=== PATIENT | male | born 1955 | race Caucasian/White ===

== ENCOUNTER → 2016-08-05 | Outpatient (CLI) | payer OTHER | LOC: YCFC.O 16:26 | PROVIDERS: ATTEND Nurse Practitioner Family | DX: K21.9 Gastro-esophageal reflux disease without esophagitis (principal); E78.5 Hyperlipidemia, unspecified; G25.2 Other specified forms of tremor; D53.1 Other megaloblastic anemias, not elsewhere classified ==

== ENCOUNTER → 2016-08-23 | Outpatient (CLI) | payer OTHER | LOC: YCFC.O 17:50 | DX: B96.81 Helicobacter pylori [H. pylori] as the cause of diseases classified elsewhere (principal) ==

== ENCOUNTER 2016-09-24 20:14 | Emergency (ER) | payer OTHER ==
[2016-09-24 20:40] VITALS: BP 133/77; TEMP 97
[2016-09-24] MEDS ORDERED: KETOROLAC TROMETHAMINE INJ 60 MG/2 ML VIAL IM ONE (21:29)
[2016-09-24] MEDS ORDERED: ORPHENADRINE CITRATE 30 MG/ML AMP IM ONE (21:29)
--- NOTE | 2016-09-24 22:05 | ED.PDOC ---
History of Present Illness - General Chief Complaint: Back Pain or Injury Stated Complaint: R. lower back/flank pain Time Seen by Provider: 09/24/16 21:28 Source: patient, RN notes reviewed, Vital Signs reviewed Exam Limitations: no limitations - History of Present Illness Initial Comments: Patient is a 61 y/o male with chronic back pain who has had increased sciatic pain since this morning. He bent down to put on his shoe and has had pain since. The pain is moderate-severe. It is an achey pain with sharp intermittent pain. He has taken his normal medications, tylenol, neurontin, flexeril and baclofen, with no improvement. Timing/Duration: other - Since this AM Severity: moderate, severe Improving Factors: immobilization Worsening Factors: movement Associated Symptoms: denies symptoms Allergies/Adverse Reactions: Allergies Thioridazine [From Mellaril] Allergy (Verified 02/16/16 02:17) Aspirin Adverse Reaction (Verified 02/16/16 02:17) Home Medications: Ambulatory Orders Cyclobenzaprine HCl [Flexeril] 10 mg PO TID #30 tab 05/26/15 Tramadol HCl [Ultram] 50 mg PO Q6H #30 tab 05/26/15 Albuterol Sulfate [Proair Hfa] 2 puff INH Q6H PRN 02/16/16 Baclofen 10 mg PO 02/16/16 Gabapentin 02/16/16 Pradaxa 02/16/16 Pravastatin Sodium 10 mg PO 02/16/16 Symbicort Inhaler 160/4.5 02/16/16 Valporic Acid 0 mg PO DAILY 02/16/16 diphenhydrAMINE HCL [Benadryl] 25 mg PO 02/16/16 Gabapentin [Neurontin] 300 mg PO BID #10 cap 09/24/16 Tramadol HCl 50 mg PO Q4H PRN #15 tab 09/24/16 Review of Systems - Review of Systems Constitutional: States: no symptoms reported EENTM: States: no symptoms reported Respiratory: States: no symptoms reported Cardiology: States: no symptoms reported Gastrointestinal/Abdominal: States: no symptoms reported Genitourinary: States: no symptoms reported Musculoskeletal: States: back pain, muscle pain, muscle stiffness Skin: States: no symptoms reported Neurological: States: no symptoms reported Endocrine: States: no symptoms reported Hematologic/Lymphatic: States: no symptoms reported All other Systems: Reviewed and Negative Past Medical History (General) - Patient Medical History Hx Seizures: No Hx Stroke: No Hx Dementia: No Hx Asthma: No Hx of COPD: Yes Hx Cardiac Disorders: No Hx Congestive Heart Failure: No Hx Pacemaker: No Hx Hypertension: No Hx Thyroid Disease: No Hx Diabetes: No Hx Gastroesophageal Reflux: No Hx Renal Disease: No Hx Cancer: No Hx of HIV: No Hx Hepatitis C: No Hx MRSA: No - Vaccination History Hx Tetanus, Diphtheria Vaccination: Yes Hx Influenza Vaccination: Yes Hx Pneumococcal Vaccination: Yes Immunizations Up to Date: Yes - Social History Hx Tobacco Use: Yes Hx Alcohol Use: Yes Hx Substance Use: Yes - still uses marijuana, past history of illicit drug use Hx Substance Use Treatment: No Hx Depression: No - Activities of Daily Living Hospice Agency (if applicable):: None - Female History Patient is a Female of Child Bearing Age (10 -59 yrs old): No Patient : No Family Medical History - Family History Father Family History: No Known Living Status: Physical Exam - Physical Exam General Appearance: Alert, No apparent distress, Unkempt Eye Exam: bilateral normal Ears, Nose, Throat: hearing grossly normal, normal ENT inspection Respiratory: lungs clear, normal breath sounds, no respiratory distress, no accessory muscle use Cardiovascular/Chest: normal peripheral pulses, regular rate, rhythm, no edema, no gallop, no murmur Gastrointestinal/Abdominal: normal bowel sounds, non tender, soft Back Exam: normal inspection, no CVA tenderness, no vertebral tenderness, other - Positive straight leg raise. Extremity: normal range of motion, non-tender, normal inspection, no pedal edema , no calf tenderness Neurologic: alert, normal mood/affect, oriented x 3 Skin Exam: normal color, warm/dry Progress - Progress Progress: 09/24/16 22:14 Patient had improvement of symptoms after Toradol and Norflex. Will increase his gabapentin from 200 mg BID to 300 mg BID for 5 days and give him some Toradol for breakthrough pain. He will follow up with his PCP if symptoms persist. - Results/Orders Results/Orders: 09/24/16 20:36 Temperature 97 F L Pulse Rate [ 87 left] Respiratory 20 Rate Blood Pressure 133/77 [left] O2 Sat by Pulse 94 L Oximetry Departure - Departure Clinical Impression: Sciatica of right side Time of Disposition: 22:16 Disposition: Discharge to Home or Self Care Departure Forms: ED Discharge - Pt. Copy, Patient Portal Self Enrollment Instructions: Sciatica, DI for Sciatica Diet: resume usual diet Referrals: Karyna Baker NP [Primary Care Provider] - 1-2 Weeks Prescriptions: Gabapentin [Neurontin] 300 mg PO BID #10 cap Tramadol HCl 50 mg PO Q4H PRN #15 tab PRN Reason: Pain Home Medications: Ambulatory Orders Cyclobenzaprine HCl [Flexeril] 10 mg PO TID #30 tab 05/26/15 Tramadol HCl [Ultram] 50 mg PO Q6H #30 tab 05/26/15 Albuterol Sulfate [Proair Hfa] 2 puff INH Q6H PRN 02/16/16 Baclofen 10 mg PO 02/16/16 Gabapentin 02/16/16 Pradaxa 02/16/16 Pravastatin Sodium 10 mg PO 02/16/16 Symbicort Inhaler 160/4.5 02/16/16 Valporic Acid 0 mg PO DAILY 02/16/16 diphenhydrAMINE HCL [Benadryl] 25 mg PO 02/16/16 Gabapentin [Neurontin] 300 mg PO BID #10 cap 09/24/16 Tramadol HCl 50 mg PO Q4H PRN #15 tab 09/24/16 Additional Instructions: Follow up with PCP if symptoms persist or ED if symptoms worsen.
[2016-09-24] MEDS ORDERED: GABAPENTIN 300 MG CAP PO ONE (22:15)
[2016-09-24 23:03] VITALS: O2SAT 95
== END 2016-09-24 23:04 | disposition home or self-care (01) ==
LOC: ER 20:14
DX: M54.41 Lumbago with sciatica, right side (principal); G89.29 Other chronic pain; J44.9 Chronic obstructive pulmonary disease, unspecified; Z79.899 Other long term (current) drug therapy; F12.10 Cannabis abuse, uncomplicated; Z88.6 Allergy status to analgesic agent; Z88.8 Allergy status to other drugs, medicaments and biological substances; Z87.891 Personal history of nicotine dependence
CPT/HCPCS: J1885; J2360

== ENCOUNTER 2016-11-15 16:33 | Emergency (ER) | payer OTHER ==
[2016-11-15 17:02] VITALS: TEMP 98.6
--- NOTE | 2016-11-15 17:55 | RAD ---
EXAM: Chest,2 Views CLINICAL INDICATION: 61-year-old male with recent pneumonia. TECHNIQUE: Two-view, PA and lateral projections of the chest were obtained. COMPARISON: 09/30/2009. FINDINGS: Stable cardiac and mediastinal silhouette. Heart size is normal. Lungs are clear without focal opacity, pneumothorax or pleural effusions. The visualized bones are within normal limits. IMPRESSION: No acute cardiopulmonary abnormalities. Electronically signed by: Emeli Marie MD 11/15/2016 5:53 PM CDT
--- NOTE | 2016-11-15 18:44 | ED.PDOC ---
History of Present Illness - General Chief Complaint: General Time Seen by Provider: 11/15/16 16:47 Source: patient Exam Limitations: no limitations - History of Present Illness Initial Comments: The patient is a 61-year-old male presenting to the emergency room secondary to vague symptoms for the last 24 hours of generalized fatigue and mild body aches. Very mild nausea but no vomiting. No diarrhea. No constipation. He has not been sleeping at his normal home lately and has missed a few doses of his quinine. No chest pain or shortness of breath. He is concerned for a recurrence of pneumonia which he had a month or 2 ago. He is not coughing. He has not had a fever. No runny nose. Timing/Duration: 24 hours Severity: mild Improving Factors: nothing Worsening Factors: nothing Associated Symptoms: denies symptoms Allergies/Adverse Reactions: Allergies Thioridazine [From Mellaril] Allergy (Verified 11/15/16 16:57) Anaphylaxis Aspirin Adverse Reaction (Verified 11/15/16 16:57) Other Told not to take it with the Valproic acid Home Medications: Ambulatory Orders Cyclobenzaprine HCl [Flexeril] 10 mg PO TID #30 tab 05/26/15 Tramadol HCl [Ultram] 50 mg PO Q6H #30 tab 05/26/15 Albuterol Sulfate [Proair Hfa] 2 puff INH Q6H PRN 02/16/16 Baclofen 10 mg PO 02/16/16 Gabapentin 02/16/16 Pradaxa 02/16/16 Pravastatin Sodium 10 mg PO 02/16/16 Symbicort Inhaler 160/4.5 02/16/16 Valporic Acid 0 mg PO DAILY 02/16/16 diphenhydrAMINE HCL [Benadryl] 25 mg PO 02/16/16 Gabapentin [Neurontin] 300 mg PO BID #10 cap 09/24/16 Tramadol HCl 50 mg PO Q4H PRN #15 tab 09/24/16 Review of Systems - Review of Systems Constitutional: States: malaise EENTM: States: no symptoms reported Respiratory: States: no symptoms reported Cardiology: States: no symptoms reported Gastrointestinal/Abdominal: States: nausea Genitourinary: States: no symptoms reported Musculoskeletal: States: other - generalized body aches Skin: States: no symptoms reported Neurological: States: anxiety Endocrine: States: no symptoms reported All other Systems: No Change from Baseline Past Medical History (General) - Patient Medical History Hx Seizures: No Hx Stroke: No Hx Dementia: No Hx Asthma: No Hx of COPD: Yes Hx Cardiac Disorders: No Hx Congestive Heart Failure: No Hx Pacemaker: No Hx Hypertension: No Hx Thyroid Disease: No Hx Diabetes: No Hx Gastroesophageal Reflux: No Hx Renal Disease: No Hx Cancer: Yes - skin cancer Hx of HIV: No Hx Hepatitis C: No Hx MRSA: No - Vaccination History Hx Tetanus, Diphtheria Vaccination: Yes Hx Influenza Vaccination: Yes - 2015 Hx Pneumococcal Vaccination: Yes - 2009 - Social History Hx Tobacco Use: Yes Hx Alcohol Use: Yes Hx Substance Use: Yes - still uses marijuana, past history of illicit drug use Hx Substance Use Treatment: No Hx Depression: No - Female History Patient : No Family Medical History - Family History Father Family History: No Known Living Status: Physical Exam - Physical Exam General Appearance: Alert, Anxious, No apparent distress Eye Exam: bilateral normal Ears, Nose, Throat: hearing grossly normal, normal ENT inspection, normal pharynx Neck: non-tender, full range of motion, supple Respiratory: chest non-tender, lungs clear, normal breath sounds, no respiratory distress, no accessory muscle use Cardiovascular/Chest: normal peripheral pulses, regular rate, rhythm, no edema Peripheral Pulses: radial,right: 2+, radial,left: 2+, dorsalis pedis,right: 2+, dorsalis pedis,left: 2+, posterior tibialis,right: 2+, posterior tibialis,left: 2+ Gastrointestinal/Abdominal: normal bowel sounds, non tender, soft Rectal Exam: deferred Back Exam: normal inspection, no CVA tenderness, no vertebral tenderness Extremity: normal range of motion, non-tender, normal inspection, no pedal edema , normal capillary refill Neurologic: alert, normal mood/affect, oriented x 3 Skin Exam: normal color Comments: Vital Signs - 24 hr 11/15/16 16:55 Temperature 98.6 F Pulse Rate [ 96 H Right Radial] Respiratory 20 Rate Blood Pressure 126/90 [Right Arm] O2 Sat by Pulse 96 Oximetry Progress - Progress Progress: 11/15/16 18:45 the patient's a 61-year-old male presenting with vague symptoms. He needs to keep himself well hydrated. He needs to be sure that he is taking his medications routinely. I would suggest decreasing his quinine dose if possible. No evidence of pneumonia seen on chest x-ray. EKG is reassuring. Lab work is otherwise reassuring. He should follow-up with his primary care doctor later in the week. ER warnings were given. - Results/Orders Results/Orders: Laboratory Tests 11/15/16 11/15/16 17:47 17:47 WBC 8.3 RBC 4.93 Hgb 15.4 Hct 46.4 MCV 94.1 H MCH 31.3 H MCHC 33.2 RDW 14.1 Plt Count 273 MPV 7.2 L Absolute Neuts (auto) 5.90 Absolute Lymphs (auto) 1.40 Absolute Monos (auto) 0.90 H Absolute Eos (auto) 0.20 Absolute Basos (auto) 0.00 Neutrophils % 70.6 Lymphocytes % 16.8 L Monocytes % 10.4 H Eosinophils % 1.8 Basophils % 0.4 Sodium 142 Potassium 5.2 H Chloride 102 Carbon Dioxide 32 H Anion Gap 13.2 BUN 18 Creatinine 0.78 BUN/Creatinine Ratio 23.1 H Random Glucose 107 H Serum Osmolality 285.5 Calcium 9.9 Magnesium 1.7 L Total Bilirubin 0.4 AST 17 ALT 14 Alkaline Phosphatase 65 Serum Total Protein 7.7 Albumin 4.7 Globulin 3.0 Albumin/Globulin Ratio 1.6 Valproic Acid 10.0 L EKG shows normal sinus rhythm. Normal progression of R waves. No acute ST segment changes concerning for ischemia. Departure - Departure Clinical Impression: Malaise and fatigue Disposition: Discharge to Home or Self Care Condition: Fair Departure Forms: ED Discharge - Pt. Copy, Patient Portal Self Enrollment Diet: regular diet Activity: increase activity as tolerated Referrals: Karyna Baker NP [Primary Care Provider] - 1-2 Weeks Home Medications: Ambulatory Orders Cyclobenzaprine HCl [Flexeril] 10 mg PO TID #30 tab 05/26/15 Tramadol HCl [Ultram] 50 mg PO Q6H #30 tab 05/26/15 Albuterol Sulfate [Proair Hfa] 2 puff INH Q6H PRN 02/16/16 Baclofen 10 mg PO 02/16/16 Gabapentin 02/16/16 Pradaxa 02/16/16 Pravastatin Sodium 10 mg PO 02/16/16 Symbicort Inhaler 160/4.5 02/16/16 Valporic Acid 0 mg PO DAILY 02/16/16 diphenhydrAMINE HCL [Benadryl] 25 mg PO 02/16/16 Gabapentin [Neurontin] 300 mg PO BID #10 cap 09/24/16 Tramadol HCl 50 mg PO Q4H PRN #15 tab 09/24/16 Additional Instructions: the patient's a 61-year-old male presenting with vague symptoms. He needs to keep himself well hydrated. He needs to be sure that he is taking his medications routinely. I would suggest decreasing his quinine dose if possible. No evidence of pneumonia seen on chest x-ray. EKG is reassuring. Lab work is otherwise reassuring. He should follow-up with his primary care doctor later in the week. ER warnings were given. the fatigue that he is feeling concerned may be a side effect of the pain medications muscle relaxers and quinine.
[2016-11-15 19:17] VITALS: BP 142/87; O2SAT 93
== END 2016-11-15 19:00 | disposition home or self-care (01) ==
LOC: ER 16:33
DX: R53.83 Other fatigue (principal); R53.81 Other malaise; F12.90 Cannabis use, unspecified, uncomplicated; Z87.891 Personal history of nicotine dependence; J44.9 Chronic obstructive pulmonary disease, unspecified; Z85.828 Personal history of other malignant neoplasm of skin; Z79.899 Other long term (current) drug therapy; Z79.82 Long term (current) use of aspirin; Z88.8 Allergy status to other drugs, medicaments and biological substances

== ENCOUNTER → 2017-03-04 | Outpatient (CLI) | payer OTHER | END | disposition home or self-care (01) | LOC: YCFC.O 15:15 | DX: I10 Essential (primary) hypertension (principal) ==

== ENCOUNTER → 2017-04-20 | Outpatient (CLI) | payer OTHER ==
--- NOTE | 2017-04-22 11:12 | RAD ---
EXAM DESCRIPTION: Chest,2 Views CLINICAL HISTORY: ABNORMAL SPUTUM COMPARISON: November 15, 2016 TECHNIQUE: PA/lateral FINDINGS: The lungs are well expanded and clear. No infiltrates or effusions or masses are noted. The heart is normal in size and shape with no evidence of vascular congestion. The nicolasa and mediastinum demonstrate normal contours. The bony spine and chest wall is normal for age in appearance. IMPRESSION: Normal chest, two views Electronically signed by: Christiano Elias MD 04/22/2017 11:10 AM CDT
== END | disposition home or self-care (01) ==
LOC: RAD 14:44
DX: R09.3 Abnormal sputum (principal)

== ENCOUNTER 2017-06-11 22:52 | Emergency (ER) | payer OTHER ==
[2017-06-11 23:35] VITALS: TEMP 98.3
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
[2017-06-12] MEDS ORDERED: ORPHENADRINE CITRATE 30 MG/ML AMP IM ONE (00:29)
[2017-06-12] MEDS ORDERED: predniSONE 10 MG TAB PO ONE (00:29)
[2017-06-12] MEDS ORDERED: GABAPENTIN 300 MG CAP PO ONE (00:29)
[2017-06-12] MEDS ORDERED: KETOROLAC TROMETHAMINE INJ 30 MG/ML VIAL IM ONE (00:29)
--- NOTE | 2017-06-12 01:07 | RAD ---
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 FINDINGS: The lumbar vertebral bodies demonstrate normal height and alignment. There is moderate intervertebral disc space height loss at L5-S1 and mild disc space height loss at L4-L5. Mild degenerative endplate spurring and scattered lower lumbar spine facet arthropathy. Aortic atherosclerosis. IMPRESSION: Mild degenerative changes of the lumbar spine. Electronically signed by: Mejia Haynes MD 06/12/2017 12:38 AM MODELING AND SIMULATION ANALYST
[2017-06-12 02:24] VITALS: BP 148/90; O2SAT 95
== END 2017-06-12 01:40 | disposition home or self-care (01) ==
LOC: ER 22:52
DX: M51.36 Other intervertebral disc degeneration, lumbar region (principal); Z87.891 Personal history of nicotine dependence; F31.9 Bipolar disorder, unspecified; Z79.899 Other long term (current) drug therapy; J44.9 Chronic obstructive pulmonary disease, unspecified; K21.9 Gastro-esophageal reflux disease without esophagitis
CPT/HCPCS: 72100; J1885; J2360; J7512

== ENCOUNTER 2017-09-03 15:46 | Emergency (ER) | payer OTHER ==
[2017-09-03] MEDS ORDERED: IPRATROPIUM/ALBUTEROL 3 ML VIAL NEB ONE (17:05)
--- NOTE | 2017-09-03 17:45 | RAD ---
EXAM DESCRIPTION: Chest,2 Views CLINICAL HISTORY: 62 years Male, cough, OSORIO COMPARISON: 20 April 2017 TECHNIQUE: PA/lateral FINDINGS: There is no cardiac or pulmonary abnormality. The lungs are clear. There is no effusion. IMPRESSION: 1. Normal two-view chest. Electronically signed by: Kevin Yao MD 09/03/2017 5:44 PM [facility]
[2017-09-03] MEDS ORDERED: cefTRIAXone SODIUM 1 GM in SODIUM CHL 0.9% 50ML MIN-BAG+ 50 ML IVPB ONE (17:57)
[2017-09-03] MEDS ORDERED: methylPREDNISolone SODIUM SUC 125 MG/2 ML VIAL IM ONE (17:57)
[2017-09-03] MEDS ORDERED: cefTRIAXone SODIUM 1 GM VIAL ONE (18:08)
[2017-09-03] MEDS ORDERED: SODIUM CHL 0.9% 50ML MIN-BAG+ 0 ML IVPB ONE (18:08)
[2017-09-03] MEDS ORDERED: LIDOCAINE 1% 10 ML VIAL INJ ONE (18:10)
[2017-09-03] MEDS ORDERED: cefTRIAXone SODIUM 1 GM VIAL IM ONE (18:16)
--- NOTE | 2017-09-03 18:41 | ED.PDOC ---
History of Present Illness - General Chief Complaint: Respiratory Problem Stated Complaint: cough x7 days Time Seen by Provider: 09/03/17 17:56 Source: patient - History of Present Illness Comments: SOB AND WHEEZING SINCE YESTERDAY. HIS COUGH IS PRODUCTIVE. THE PATIENT HAS COPD AND STILL SMOKES Timing/Duration: yesterday Cough Quality/Degree: productive cough, sputum - SPUTUM SEEMS TO BE YELLOW Possible Cause: occasional episodes Improving Factors: nothing Worsening Factors: nothing Associated Symptoms: cough, shortness of breath Allergies/Adverse Reactions: Allergies Thioridazine [From Mellaril] Allergy (Verified 06/11/17 23:36) Anaphylaxis Home Medications: Ambulatory Orders Cyclobenzaprine HCl [Flexeril] 10 mg PO TID #30 tab 05/26/15 Albuterol Sulfate [Proair Hfa] 2 puff INH BID PRN 02/16/16 Baclofen 10 mg PO DAILY 02/16/16 Budesonide-Formoterol Fumarate [Symbicort] 1 aer INH BID 02/16/16 Pravastatin Sodium 10 mg PO DAILY 02/16/16 Valproic Acid 250 mg PO BID 02/16/16 diphenhydrAMINE HCL [Benadryl] 25 mg PO BID 02/16/16 Diphenoxylate/Atropine [Lomotil Tab] 2.5 mg PO DAILY PRN 11/15/16 Gabapentin 200 mg PO BID 11/15/16 Hyoscyamine Sulfate [Anaspaz] 0.125 mg PO DAILY PRN 11/15/16 Indomethacin 25 mg PO BID 11/15/16 Pantoprazole Tablet [Protonix] 40 mg PO BEDTIME 11/15/16 Quinine Sulfate 324 mg PO BEDTIME 11/15/16 Diclofenac Sodium [Diclofenac Sodium Dr] 75 mg PO BID #30 tab 06/12/17 Methocarbamol [Robaxin] 750 mg PO BID #30 tab 06/12/17 Dextromethorphan-Guaifenesin [Mucinex Dm Maximum Streng 60-1200 mg] 1 tab PO BID #14 tab 09/03/17 Doxycycline (Monohydrate) [Doxycycline Monohydrate] 100 mg PO BID #20 tab predniSONE 20 mg PO DAILY #7 tab 09/03/17 Review of Systems - Review of Systems Constitutional: States: no symptoms reported EENTM: States: no symptoms reported Respiratory: States: cough, short of breath, wheezing Cardiology: States: no symptoms reported Gastrointestinal/Abdominal: States: no symptoms reported Genitourinary: States: no symptoms reported Musculoskeletal: States: no symptoms reported Skin: States: no symptoms reported Neurological: States: no symptoms reported Endocrine: States: no symptoms reported Hematologic/Lymphatic: States: no symptoms reported All other Systems: Reviewed and Negative Past Medical History (General) - Patient Medical History Hx Seizures: No Hx Stroke: No Hx Dementia: No Hx Asthma: No Hx of COPD: Yes Hx Cardiac Disorders: No Hx Congestive Heart Failure: No Hx Pacemaker: No Hx Hypertension: No Hx Thyroid Disease: No Hx Diabetes: No Hx Gastroesophageal Reflux: Yes Hx Renal Disease: No Hx Cancer: Yes - skin cancer Hx of HIV: No Hx Hepatitis C: No Hx MRSA: No Surgical History: other - Vaccination History Hx Tetanus, Diphtheria Vaccination: No Hx Influenza Vaccination: Yes Hx Pneumococcal Vaccination: Yes - Social History Hx Tobacco Use: Yes Hx Alcohol Use: Yes - occ Hx Substance Use: Yes - still uses marijuana, past history of illicit drug use Hx Substance Use Treatment: No Hx Depression: Yes - bipolar - Female History Patient : No Family Medical History - Family History Father Family History: No Known Living Status: Hx Family Cancer: Yes - esophagus-brother Hx Family;Other: ALS-mom Physical Exam - Physical Exam General Appearance: Alert, Well Developed, Well Groomed, Other - MODERATE DISTRESS, COUGHIN AND WHEEZING Eye Exam: bilateral normal ENT Exam: normal ENT inspection Neck: non-tender Respiratory: rhonchi, wheezing Gastrointestinal/Abdominal: normal bowel sounds Extremity: normal range of motion Skin Exam: normal color Lymphatic: no adenopathy Progress - Results/Orders Results/Orders: CXR- NO ACUTE PROCESS REASSESSED AFTER TREATMENT- BETTER Departure - Departure Clinical Impression: COPD exacerbation, Chronic bronchitis with acute exacerbation Time of Disposition: 18:45 Disposition: Discharge to Home or Self Care Condition: Fair Departure Forms: ED Discharge - Pt. Copy, Patient Portal Self Enrollment Instructions: DI for Chronic Bronchitis Referrals: Isidoro Vazquez MD [Primary Care Provider] - 1-2 Weeks Prescriptions: Dextromethorphan-Guaifenesin [Mucinex Dm Maximum Streng 60-1200 mg] 1 tab PO BID #14 tab Doxycycline (Monohydrate) [Doxycycline Monohydrate] 100 mg PO BID #20 tab predniSONE 20 mg PO DAILY #7 tab Home Medications: Ambulatory Orders Cyclobenzaprine HCl [Flexeril] 10 mg PO TID #30 tab 05/26/15 Albuterol Sulfate [Proair Hfa] 2 puff INH BID PRN 02/16/16 Baclofen 10 mg PO DAILY 02/16/16 Budesonide-Formoterol Fumarate [Symbicort] 1 aer INH BID 02/16/16 Pravastatin Sodium 10 mg PO DAILY 02/16/16 Valproic Acid 250 mg PO BID 02/16/16 diphenhydrAMINE HCL [Benadryl] 25 mg PO BID 02/16/16 Diphenoxylate/Atropine [Lomotil Tab] 2.5 mg PO DAILY PRN 11/15/16 Gabapentin 200 mg PO BID 11/15/16 Hyoscyamine Sulfate [Anaspaz] 0.125 mg PO DAILY PRN 11/15/16 Indomethacin 25 mg PO BID 11/15/16 Pantoprazole Tablet [Protonix] 40 mg PO BEDTIME 11/15/16 Quinine Sulfate 324 mg PO BEDTIME 11/15/16 Diclofenac Sodium [Diclofenac Sodium Dr] 75 mg PO BID #30 tab 06/12/17 Methocarbamol [Robaxin] 750 mg PO BID #30 tab 06/12/17 Dextromethorphan-Guaifenesin [Mucinex Dm Maximum Streng 60-1200 mg] 1 tab PO BID #14 tab 09/03/17 Doxycycline (Monohydrate) [Doxycycline Monohydrate] 100 mg PO BID #20 tab predniSONE 20 mg PO DAILY #7 tab 09/03/17
[2017-09-03 20:44] VITALS: BP 136/85; TEMP 98.3; O2SAT 93
== END 2017-09-03 19:30 | disposition home or self-care (01) ==
LOC: ER 15:46
DX: J44.1 Chronic obstructive pulmonary disease with (acute) exacerbation (principal); J42 Unspecified chronic bronchitis; K21.9 Gastro-esophageal reflux disease without esophagitis
CPT/HCPCS: 71046; 94640; J0696; J2930; J7620

== ENCOUNTER 2017-11-04 17:09 | Emergency (ER) | payer OTHER ==
[2017-11-04] MEDS ORDERED: KETOROLAC TROMETHAMINE INJ 60 MG/2 ML VIAL IM ONE (18:08)
--- NOTE | 2017-11-04 18:11 | ED.PDOC ---
History of Present Illness - General Chief Complaint: Abdominal Pain Stated Complaint: abdominal pain Time Seen by Provider: 11/04/17 17:30 Information Source: patient Exam Limitations: no limitations - History of Present Illness Initial Comments: patient comes in today for 1 week history of lower abdominal pain. The pain is above his pubic symphysis at the area of the pannus fold. Patient states he was getting out of a chair and twisted and felt a sudden pull with sharp pain. The pain has progressively improved and is now mild in severity. It is worse with coughing or with lifting heavy things and better if he holds his stomach in place. Patient has had 2 hernias in the past when his umbilical area and one in his inguinal area. For this reason he was concerned that he does state it does feel different and a passes other hernias have not improved. He has no nausea, vomiting, diarrhea, or constipation. Coincidentally he is also suffering from a left-sided back spasm. He had no injury or trauma but states he often gets these and normally responds well to Toradol. The patient and no change in sensation to his upper or lower extremities. Abdominal Pain Onset Location: suprapubic Pain Radiation: no radiation Quality: mild Timing/Duration: 1 week Improving Factors: other - holding his stomach Worsening Factors: other - cough Associated Symptoms: denies symptoms Review of Systems - Review of Systems Constitutional: States: no symptoms reported. Denies: chills, fever EENTM: States: no symptoms reported Respiratory: States: no symptoms reported. Denies: cough, orthopnea, short of breath, wheezing Cardiology: States: no symptoms reported. Denies: chest pain, edema, palpitations Gastrointestinal/Abdominal: States: see HPI, abdominal pain. Denies: constipation, diarrhea, nausea, vomiting Genitourinary: States: no symptoms reported Musculoskeletal: States: see HPI, back pain Skin: States: no symptoms reported Neurological: States: no symptoms reported. Denies: paresthesia Past Medical History (General) - Patient Medical History Hx Seizures: No Hx Stroke: No Hx Dementia: No Hx Asthma: No Hx of COPD: Yes Hx Cardiac Disorders: No Hx Congestive Heart Failure: No Hx Pacemaker: No Hx Hypertension: Yes Hx Thyroid Disease: No Hx Diabetes: No Hx Gastroesophageal Reflux: Yes Hx Renal Disease: No Hx Cancer: Yes - Skin Hx of HIV: No Hx Hepatitis C: No Hx MRSA: No - Vaccination History Hx Tetanus, Diphtheria Vaccination: No Hx Influenza Vaccination: Yes Hx Pneumococcal Vaccination: Yes - Social History Hx Tobacco Use: Yes Hx Alcohol Use: Yes - occ Hx Substance Use: Yes - still uses marijuana, past history of illicit drug use Hx Substance Use Treatment: No Hx Depression: Yes - bipolar - Female History Patient : No Family Medical History - Family History Father Family History: No Known Living Status: Hx Family Cancer: Yes - esophagus-brother Hx Family;Other: ALS-mom Physical Exam - Physical Exam General Appearance: No apparent distress Eyes, Ears, Nose, Throat Exam: PERRL/EOMI, normal ENT inspection, TMs normal, pharynx normal Neck: non-tender, supple Respiratory: chest non-tender, lungs clear, normal breath sounds, no respiratory distress Cardiovascular/Chest: normal peripheral pulses, regular rate, rhythm, no edema, no gallop, no murmur Gastrointestinal/Abdominal: normal bowel sounds, soft, no organomegaly, no pulsatile mass, other - tears to palpation in the left lower quadrant over the pubic symphysis without definitive hernia, bruising, or deformity. No change in examwith Valsalva Back Exam: other - muscle spasm and tenderness to palpation on the left sacral iliac area without bruising or gross deformity Departure - Departure Clinical Impression: Abdominal muscle strain Qualifiers: Encounter type: initial encounter Qualified Code(s): S39.011A - Strain of muscle, fascia and tendon of abdomen, initial encounter Back strain Qualifiers: Encounter type: initial encounter Qualified Code(s): S39.012A - Strain of muscle, fascia and tendon of lower back, initial encounter Disposition: Discharge to Home or Self Care Condition: Good Departure Forms: ED Discharge - Pt. Copy, Patient Portal Self Enrollment Diet: regular diet Activity: increase activity as tolerated Referrals: Isidoro Vazquez MD [Primary Care Provider] - 1-2 Weeks Home Medications: Ambulatory Orders Baclofen 10 mg PO DAILY 02/16/16 Pravastatin Sodium 10 mg PO DAILY 02/16/16 Valproic Acid 250 mg PO BID 02/16/16 diphenhydrAMINE HCL [Benadryl] 25 mg PO BID 02/16/16 Diphenoxylate/Atropine [Lomotil Tab] 2.5 mg PO DAILY PRN 11/15/16 Hyoscyamine Sulfate [Anaspaz] 0.125 mg PO DAILY PRN 11/15/16 Pantoprazole Tablet [Protonix] 40 mg PO DAILY@0630 11/15/16 Quinine Sulfate 324 mg PO BEDTIME 11/15/16 Methocarbamol [Robaxin] 750 mg PO BID #30 tab 06/12/17 Budesonide-Formoterol Fumarate [Symbicort 160-4.5 Mcg/Act] 2 puff INH BID Cetirizine HCl 10 mg PO DAILY 11/04/17 Cyclobenzaprine HCl [Flexeril] 10 mg PO BID 11/04/17 Gabapentin [Neurontin] 300 mg PO BID 11/04/17 Tramadol HCl [Tramadol HCl] 50 mg PO PRN PRN 11/04/17 Additional Instructions: at this time no hernia is felt. Return to emergency room for increasing pain, bulge at the area, or intractable emesis. Follow up with PCP in one to 2 weeks if resolution does not occur.
[2017-11-04 18:39] VITALS: BP 140/90; O2SAT 93
== END 2017-11-04 18:41 | disposition home or self-care (01) ==
LOC: ER 17:09
DX: S39.011A Strain of muscle, fascia and tendon of abdomen, initial encounter (principal); S39.012A Strain of muscle, fascia and tendon of lower back, initial encounter; J44.9 Chronic obstructive pulmonary disease, unspecified; I10 Essential (primary) hypertension; K21.9 Gastro-esophageal reflux disease without esophagitis; F31.9 Bipolar disorder, unspecified; Z85.828 Personal history of other malignant neoplasm of skin; Z87.891 Personal history of nicotine dependence; X58.XXXA Exposure to other specified factors, initial encounter

== ENCOUNTER 2018-02-13 23:06 | Emergency (ER) | payer OTHER ==
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
[2018-02-13 23:33] VITALS: TEMP 98.8; O2SAT 94
[2018-02-13] MEDS ORDERED: KETOROLAC TROMETHAMINE INJ 30 MG/ML VIAL IM ONE (23:48)
[2018-02-13] MEDS ORDERED: ORPHENADRINE CITRATE 30 MG/ML AMP IM ONE (23:48)
[2018-02-14 00:43] VITALS: BP 147/82
== END 2018-02-14 00:47 | disposition home or self-care (01) ==
LOC: ER 23:06
DX: M54.5 Low back pain (principal); G89.29 Other chronic pain; I10 Essential (primary) hypertension; J44.9 Chronic obstructive pulmonary disease, unspecified; K21.9 Gastro-esophageal reflux disease without esophagitis; Z79.899 Other long term (current) drug therapy; Z85.828 Personal history of other malignant neoplasm of skin
CPT/HCPCS: J1885; J2360

== ENCOUNTER → 2018-02-19 | Outpatient (CLI) | payer OTHER | LOC: LAB.O 17:15 | PROVIDERS: ATTEND Nurse Practitioner Family | DX: F31.12 Bipolar disorder, current episode manic without psychotic features, moderate (principal) ==

== ENCOUNTER 2018-08-20 14:05 | Inpatient (IN) | payer MEDICARE, OTHER ==
[2018-08-20] MEDS ORDERED: KETOROLAC TROMETHAMINE INJ 60 MG/2 ML VIAL IM ONE (14:56)
--- NOTE | 2018-08-20 14:58 | ED.PDOC ---
History of Present Illness - General Stated Complaint: generalized pain Time Seen by Provider: 08/20/18 14:55 Source: patient Exam Limitations: no limitations - History of Present Illness Initial Comments: patient comes in with generalized pain for 24 hours. He states he may have been a little bit of febrile but denies any chills. He states the pain is right now on his right breast abdomen and left foot. Patient states earlier his back was hurting severely as well as just generalized achiness. He has some nasal congestion and sore throat he has a chronic cough from smoking with this been productive for the past month. He has no emesis but had some nausea last night. Timing/Duration: 24 hours Severity: moderate Improving Factors: nothing Worsening Factors: nothing Associated Symptoms: fever/chills, nausea/vomiting Allergies/Adverse Reactions: Allergies Thioridazine [From Mellaril] Allergy (Verified 02/13/18 23:33) Anaphylaxis Home Medications: Ambulatory Orders Pravastatin Sodium 40 mg PO DAILY 02/16/16 Valproic Acid 250 mg PO BID 02/16/16 diphenhydrAMINE HCL [Benadryl] 25 mg PO BID 02/16/16 Pantoprazole Tablet [Protonix] 40 mg PO DAILY@0630 11/15/16 Cetirizine HCl 10 mg PO DAILY 11/04/17 Cyclobenzaprine HCl [Flexeril] 10 mg PO TID PRN 11/04/17 Gabapentin [Neurontin] 300 mg PO BID 11/04/17 Tramadol HCl 50 mg PO PRN PRN 11/04/17 Acetaminophen [Acetaminophen/Extra Stren] 1,000 mg PO BID 08/20/18 Calcium Carbonate-Cholecalcife [Calcium 600+D3 600-800 mg-Unit] 630 mg PO DAILY 08/20/18 Cyanocobalamin [Vitamin B12] 5 mg PO DAILY 08/20/18 Meloxicam 15 mg PO DAILY 08/20/18 Multiple Vitamins W/ Minerals [Multivitamin Adults 50+] 1 tab PO DAILY 08/20/18 Review of Systems - Review of Systems Constitutional: States: fever, malaise EENTM: States: nose congestion, throat pain Respiratory: States: cough. Denies: short of breath, wheezing Cardiology: States: no symptoms reported. Denies: chest pain, edema, palpitations Gastrointestinal/Abdominal: States: nausea. Denies: abdominal pain, constipation, diarrhea, vomiting Genitourinary: States: no symptoms reported Musculoskeletal: States: see HPI Past Medical History (General) - Patient Medical History Hx Seizures: No Hx Stroke: No Hx Dementia: No Hx Asthma: No Hx of COPD: Yes Hx Cardiac Disorders: No Hx Congestive Heart Failure: No Hx Pacemaker: No Hx Hypertension: Yes Hx Thyroid Disease: No Hx Diabetes: No Hx Gastroesophageal Reflux: Yes Hx Renal Disease: No Hx Cancer: Yes - Skin Hx of HIV: No Hx Hepatitis C: No Hx MRSA: No - Vaccination History Hx Tetanus, Diphtheria Vaccination: No Hx Influenza Vaccination: Yes Hx Pneumococcal Vaccination: Yes - Social History Hx Tobacco Use: Yes Hx Alcohol Use: Yes - occ Hx Substance Use: Yes - still uses marijuana, past history of illicit drug use Hx Substance Use Treatment: No Hx Depression: Yes - bipolar - Female History Patient : No Family Medical History - Family History Father Family History: No Known Living Status: Hx Family Cancer: Yes - esophagus-brother Hx Family;Other: ALS-mom Physical Exam - Physical Exam General Appearance: Alert, No apparent distress Eye Exam: bilateral normal Ears, Nose, Throat: hearing grossly normal, normal ENT inspection, normal pharynx Neck: non-tender, full range of motion, supple, normal inspection Respiratory: chest non-tender, lungs clear, normal breath sounds, no respiratory distress Cardiovascular/Chest: normal peripheral pulses, regular rate, rhythm, no edema, no gallop, no JVD, no murmur Peripheral Pulses: radial,right: 2+, radial,left: 2+ Gastrointestinal/Abdominal: normal bowel sounds, non tender, soft Back Exam: normal inspection, no CVA tenderness, no vertebral tenderness Extremity: non-tender Neurologic: alert, oriented x 3 Progress - Progress Progress: 08/20/18 16:46 patient doing better after breathing treatment and toradol but still with wheezing and requiring O2. Called to [facility] [employer] [facility] operations manager/coordinator Vladimir Wilkins for admission. He will see if he has any beds and all us back - Results/Orders Results/Orders: 08/20/18 15:30 [facility] .PRN Laboratory Results WBC 9.5 K/mm3 (4.8-10.8) 08/20/18 15:03 RBC 4.50 M/mm3 (4.70-6.10) L 08/20/18 15:03 Hgb 14.6 gm/dL (14.0-18.0) 08/20/18 15:03 Hct 43.5 % (42.0-52.0) 08/20/18 15:03 MCV 96.7 fl (80.0-94.0) H 08/20/18 15:03 MCH 32.4 pg (27.0-31.0) H 08/20/18 15:03 MCHC 33.4 g/dL (33.0-37.0) 08/20/18 15:03 RDW 14.8 % (11.5-14.5) H 08/20/18 15:03 Plt Count 224 K/mm3 (130-400) 08/20/18 15:03 MPV 7.8 fl (7.40-10.4) 08/20/18 15:03 Absolute Neuts (auto) 8.00 K/uL (1.8-6.8) H 08/20/18 15:03 Absolute Lymphs (auto) 0.20 K/uL (1.0-3.4) L 08/20/18 15:03 Absolute Monos (auto) 1.10 K/uL (0.2-0.8) H 08/20/18 15:03 Absolute Eos (auto) 0.10 K/uL (0.0-0.4) 08/20/18 15:03 Absolute Basos (auto) 0.00 K/uL (0.0-0.1) 08/20/18 15:03 Neutrophils % 84.9 % (42.0-78.0) H 08/20/18 15:03 Lymphocytes % 1.7 % (20.0-50.0) L 08/20/18 15:03 Monocytes % 12.0 % (2.0-9.0) H 08/20/18 15:03 Eosinophils % 1.2 % (1.0-5.0) 08/20/18 15:03 Basophils % 0.2 % (0.0-2.0) 08/20/18 15:03 Sodium 138 mmol/L (135-145) 08/20/18 15:03 Potassium 4.0 mmol/L (3.6-5.0) 08/20/18 15:03 Chloride 100 mmol/L (101-111) L 08/20/18 15:03 Carbon Dioxide 28 mmol/L (21-31) 08/20/18 15:03 Anion Gap 14.0 (12-18) 08/20/18 15:03 BUN 25 mg/dL (7-18) H 08/20/18 15:03 Creatinine 0.94 mg/dL (0.6-1.3) 08/20/18 15:03 BUN/Creatinine Ratio 26.6 (10-20) H 08/20/18 15:03 Random Glucose 107 mg/dL (70-105) H 08/20/18 15:03 Serum Osmolality 280.6 mOsm/L (275-295) 08/20/18 15:03 Calcium 10.2 mg/dL (8.4-10.2) 08/20/18 15:03 Total Bilirubin 0.8 mg/dL (0.2-1.0) 08/20/18 15:03 AST 26 IU/L (10-42) 08/20/18 15:03 ALT 23 IU/L (10-60) 08/20/18 15:03 Alkaline Phosphatase 61 IU/L (42-121) 08/20/18 15:03 Serum Total Protein 7.2 gm/dL (6.4-8.2) 08/20/18 15:03 Albumin 4.3 g/dl (3.2-5.5) 08/20/18 15:03 Globulin 2.9 gm/dL (2.3-3.5) 08/20/18 15:03 Albumin/Globulin Ratio 1.5 (1.1-1.9) 08/20/18 15:03 Microbiology 08/20/18 15:07 Nose - Final influ A positive Chest XRAY: no acute cardiopulmonary disease Departure - Departure Clinical Impression: Influenza, COPD exacerbation Disposition: Admit Patient Condition: Fair Diet: regular diet Referrals: MICHEL BROUSSARD IV, [employer] [Primary Care Provider] - 1-2 Weeks Home Medications: Ambulatory Orders Pravastatin Sodium 40 mg PO DAILY 02/16/16 Valproic Acid 250 mg PO BID 02/16/16 diphenhydrAMINE HCL [Benadryl] 25 mg PO BID 02/16/16 Pantoprazole Tablet [Protonix] 40 mg PO DAILY@0630 11/15/16 Cetirizine HCl 10 mg PO DAILY 11/04/17 Cyclobenzaprine HCl [Flexeril] 10 mg PO TID PRN 11/04/17 Gabapentin [Neurontin] 300 mg PO BID 11/04/17 Tramadol HCl 50 mg PO PRN PRN 11/04/17 Acetaminophen [Acetaminophen/Extra Stren] 1,000 mg PO BID 08/20/18 Calcium Carbonate-Cholecalcife [Calcium 600+D3 600-800 mg-Unit] 630 mg PO DAILY 08/20/18 Cyanocobalamin [Vitamin B12] 5 mg PO DAILY 08/20/18 Meloxicam 15 mg PO DAILY 08/20/18 Multiple Vitamins W/ Minerals [Multivitamin Adults 50+] 1 tab PO DAILY 08/20/18 Decision To Admit - Decistion To Admit Decision to Admit Reason: Admit from ER Decision to Admit Date: 08/20/18 Decision to Admit Time: 16:53
[2018-08-20] MEDS ORDERED: IPRATROPIUM/ALBUTEROL 3 ML VIAL NEB ONE (15:20)
--- NOTE | 2018-08-20 16:09 | RAD ---
EXAM:Chest,2 Views CLINICAL INDICATION: Hypoxia COMPARISON: 09/03/2017 FINDINGS:Two views of the chest were obtained. The heart size is normal. The pulmonary vascularity is unremarkable. The lungs are clear. There is no consolidation, infiltrate, pleural effusion, or pneumothorax. IMPRESSION: No evidence of active pulmonary disease. Electronically signed by: Edgar Chacko MD 08/20/2018 4:07 PM ASSISTANT PASSENGER LOCOMOTIVE ENGINEER
[2018-08-20] MEDS ORDERED: methylPREDNISolone SODIUM SUC 125 MG/2 ML VIAL IV ONE (16:14)
--- NOTE | 2018-08-20 17:16 | HP ---
SUPERVISING PHYSICIAN: SRINIVASA HELTON MD CHIEF COMPLAINT: Generalized weakness and pain. HISTORY OF PRESENT ILLNESS: Mr. Rushing is a 63 year-old male patient who presented to the Emergency Room today with generalized pain that occurred over the last 24 hours. He noted he had been a little febrile but denied any chills. He had had some nasal congestion and sore throat and started with a chronic cough from smoking within the last month which has become much more productive in the recent days. Vital signs showed on admission that he was febrile with a temperature of 100.4, heart rate 97, blood pressure 160/91, saturation 91% on room air at rest. Laboratory studies showed he had a normal white count of 9,500 with a left shift. Influenza testing by PCR was positive for influenza A. He does have a lengthy history of smoking citraless tobacco for well over 50 years, sometimes up to 5 packs of day he says. He also has a history of drinking alcohol on a daily to weekly basis either vodka or whiskey. He admits to using marijuana on a regular basis, usually daily. Given his history and risk factors and influenza testing being positive, febrile, Dr. Dong started the patient on Solu-Medrol and albuterol and requested the patient be admitted for chronic obstructive pulmonary disease exacerbation secondary to influenza with concerns for developing community acquired pneumonia. The patient is admitted in stable condition. PAST MEDICAL HISTORY: 1. Bipolar disorder with aggressive tendencies, currently on valproic acid. 2. Chronic back pain. 3. Hypertension. 4. Seasonal allergies. 5. B12 deficiency. 6. Gastroesophageal reflux disease. 7. Hyperlipidemia. PAST SURGICAL HISTORY: 1. Hernia repair x2. CURRENT MEDICATIONS: 1. Pravastatin 40 mg at bedtime. 2. Tramadol 100 mg b.i.d. as needed. 3. Vitamin B12, 5 mg daily. 4. Multivitamin Adult 50 plus, 1 tablet daily. 5. Calcium carbonate with vitamin D, 630 mg daily. 6. Extra Strength Tylenol 1000 mg b.i.d. 7. Meloxicam 15 mg daily. 8. Flexeril 10 mg as needed. 9. Sertraline 10 mg daily. 10. Neurontin 300 mg b.i.d. 11. Protonix 40 mg daily. 12. Valproic acid 250 mg b.i.d. 13. Benadryl 25 mg b.i.d. ALLERGIES: Thioridazine. FAMILY HISTORY: Mother in her late 80s secondary to ALS. Father at age 96 from advanced age. He had one brother who from esophageal cancer. He has 2 brothers who are healthy. He has no children. SOCIAL HISTORY: The patient is , lives just outside of [place], [place]. 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 He does smoke citraless tobacco, currently he says 5 to 6 cigarettes per day but has been up to 5 packs a day and has smoked since age 8. He does drink alcohol on a daily basis, usually vodka or whiskey. He does utilize marijuana on a daily basis. REVIEW OF SYSTEMS: CONSTITUTIONAL: Positive for fevers, chills, general malaise. HEENT: Positive for nasal congestion, sore throat. negative for earache, headaches vision changes. RESPIRATORY: Positive for productive cough, denies any significant shortness of breath or any wheezing. CARDIAC: Negative for chest pains, palpitations, edema. GASTROINTESTINAL: Negative for abdominal pain, constipation, diarrhea, vomiting. He admits he had some nausea with nasal drainage. GENITOURINARY: He denies dysuria, hematuria, polyuria. MUSCULOSKELETAL: As noted in history of present illness. NEUROLOGICAL: Denies any neurological deficits, seizure activity, ataxia or syncopal episodes. PHYSICAL EXAMINATION: VITAL SIGNS: Temperature on admission 100.4, heart rate 97, blood pressure 168/91, respirations 20, saturation 91% on room air and improved after breathing treatments up to 93% on nasal cannula at 2 liters. Admission weight 84.0 kg. GENERAL: The patient is resting comfortably and appears to be in no acute distress. He appears well hydrated and well-nourished. HEENT: Tympanic membranes are clear bilaterally. Oropharynx showed a mildly posterior pharynx with normal tonsils. No exudate noted. No lesions. NECK: Supple, non-tender with full range of motion CHEST: Lungs clear to auscultation, just diminished towards the bases. No obvious rhonchi, rales, or wheezes. CARDIOVASCULAR: Regular rate and rhythm without appreciable murmurs, rubs, or gallops. ABDOMEN: Soft,non-tender, positive bowel sounds. EXTREMITIES: No cyanosis, clubbing, or edema. NEUROLOGIC: He is alert and oriented x 3. LABORATORY: White count 9,500 with a left shift. Hemoglobin 14.6, hematocrit 43.5, platelet count 224,000. Chemistries showed normal electrolytes, potassium 4.0, BUN 25, creatinine 0.94. Glucose 107, calcium 10.2. Bilirubin, AST, ALT and alkaline phosphatase were normal. Valproic acid less than 10. MICROBIOLOGY: Sputum cultures pending. Influenza by EMERGENCY MEDICAL TECH was positive for A, negative for B. RADIOLOGY: Chest x-ray in the Emergency Room, 2-view chest, showed no consolidations, infiltrates or pleural effusions or pneumothorax. ASSESSMENT: 1. Acute exacerbation of chronic obstructive pulmonary disease secondary to influenza A with concerns for developing community acquired pneumonia with a component of hypoxia requiring supplemental oxygen. 2. Influenza A upper respiratory infection. 3. Mild dehydration secondary to influenza and ongoing fever. 4. History of hypertension. 5. History of bipolar disorder with aggressive anger episodes, currently on valproic acid. 6. History of chronic back pain. 7. Seasonal allergies. 8. Gastroesophageal reflux disease. 9. B12 deficiency. 10. Hyperlipidemia. PLAN: The patient is going to be admitted for treatment of upper respiratory infection secondary to influenza with acute exacerbation of chronic obstructive pulmonary disease with concerns for developing community acquired pneumonia. We started him on azithromycin and Rocephin and antiviral with Tamiflu. He is going to have pulmonary hygiene with q.i.d. Duoneb treatments. We will resume his home medications once they have been updated and verified. We will start him on some fluids to help with dehydration which will be half normal saline with 20 of potassium at 80. He will be on DVT prophylaxis as per protocol on Lovenox. Will anticipate his length of stay to be at least 2 to 3 days. He has also been given Solu-Medrol which will be continued, 16 mg every 6 hours and to taper to oral prednisone as able to. Will also have him on Protonix IV for gastric protection. Until the patient is able to be transferred to outpatient management, will continue to monitor and treat as needed. Once completed inpatient treatment and transfer to outpatient management, he will need to followup with his primary care physician who is Dr. Hiram Espinoza. #[id number] [facility]
[2018-08-20] MEDS ORDERED: ACETAMINOPHEN 325 MG TAB PO PRN (19:07)
[2018-08-20] MEDS ORDERED: SODIUM CHLORIDE 0.9% (FLUSH) 10 ML SYG IV PRN (19:07)
[2018-08-20] MEDS ORDERED: ONDANSETRON INJ 4 MG/2 ML VIAL IV PRN (19:07)
[2018-08-20] MEDS ORDERED: MAGNESIUM HYDROXIDE 30 ML UD PO PRN (19:07)
[2018-08-20] MEDS ORDERED: ACETAMINOPHEN SUPPOSITORY 650 MG PR PRN (19:07)
[2018-08-20] MEDS ORDERED: ALBUTEROL SULFATE 2.5 MG/3 ML VIAL NEB PRN (19:07)
[2018-08-20] MEDS ORDERED: AZITHROMYCIN IV 500 MG in SODIUM CHLORIDE 0.9% 250ML 250 ML IVPB ONE (19:11)
[2018-08-20] MEDS ORDERED: IV SET AND CAP CHANGE INJ INJ SCH (19:30)
[2018-08-20] MEDS ORDERED: SODIUM CHLORIDE 0.9% 250ML 250 ML ONE (19:55)
[2018-08-20] MEDS ORDERED: SODIUM CHL 0.9% 50ML MIN-BAG+ 50 ML IVPB ONE (19:55)
[2018-08-20] MEDS ORDERED: AZITHROMYCIN IV 500 MG VIAL IVPB ONE (19:56)
[2018-08-20] MEDS ORDERED: cefTRIAXone SODIUM 1 GM VIAL ONE (19:56)
[2018-08-20] MEDS ORDERED: IPRATROPIUM/ALBUTEROL 3 ML VIAL INH SCH (20:00)
[2018-08-20] MEDS: KCL 20MEQ/0.45% NS 1,000 ML IVS PRN (20:25)
[2018-08-20] MEDS: cefTRIAXone SODIUM 1 GM in SODIUM CHL 0.9% 50ML MIN-BAG+ 50 ML IVPB SCH (20:29)
[2018-08-20] MEDS ORDERED: CYCLOBENZAPRINE HCL 10 MG TAB PO PRN (21:10)
[2018-08-20] MEDS ORDERED: traMADol HCL 50 MG TAB PO PRN (21:10)
[2018-08-20] MEDS ORDERED: VALPROIC ACID 250 MG PO SCH (21:15)
[2018-08-20] MEDS: OSELTAMIVIR 75 MG CAP PO SCH (21:35)
[2018-08-20] MEDS: GABAPENTIN 300 MG CAP PO SCH (21:35)
[2018-08-20] MEDS: diphenhydrAMINE HCL 25 MG CAP PO SCH (21:35)
[2018-08-20] MEDS ORDERED: PRAVASTATIN SODIUM 20 MG TAB ONE (22:58)
[2018-08-20] MEDS: methylPREDNISolone SODIUM SUC 125 MG/2 ML VIAL IV SCH ×2 (23:54→23:59)
[2018-08-21] MEDS: PANTOPRAZOLE SODIUM IV 40 MG VIAL IV SCH (06:30)
[2018-08-21] MEDS ORDERED: MELOXICAM 7.5 MG TAB ONE (07:43)
[2018-08-21] MEDS ORDERED: PRAVASTATIN SODIUM 20 MG TAB ONE (07:44)
[2018-08-21] MEDS ORDERED: DIVALPROEX SODIUM 250 MG TAB ONE (07:46)
[2018-08-21] MEDS: IPRATROPIUM/ALBUTEROL 3 ML VIAL NEB SCH ×4 (08:11→21:15)
[2018-08-21] MEDS ORDERED: NON-FORMULARY MEDICATION 1 EA MIS (Pravastatin Sodium [Pravastatin Sodium] 40 MG) PO SCH (09:00)
--- NOTE | 2018-08-21 09:25 | RAD ---
EXAM DESCRIPTION: Chest,2 Views CLINICAL HISTORY: Pneumonia COMPARISON: August 20, 2018 FINDINGS: Two views of the chest are submitted. Cardiac silhouette appears normal. No focal parenchymal or pleural disease. No acute bony abnormality. There is no significant pulmonary vascular engorgement. IMPRESSION: No evidence of acute cardiopulmonary disease. Electronically signed by: Rogers Lyon 08/21/2018 9:22 AM SUPERVISOR TELEPHONE INFORMATION
[2018-08-21] MEDS: OSELTAMIVIR 75 MG CAP PO SCH ×2 (09:45→21:15)
[2018-08-21] MEDS: ACETAMINOPHEN 500 MG TAB PO SCH ×2 (09:45→21:16)
[2018-08-21] MEDS: CETIRIZINE HCL 10 MG TAB PO SCH (09:45)
[2018-08-21] MEDS: GABAPENTIN 300 MG CAP PO SCH ×2 (09:46→21:15)
[2018-08-21] MEDS: MELOXICAM 7.5 MG TAB PO SCH (09:46)
[2018-08-21] MEDS: DIVALPROEX SODIUM 250 MG TAB PO SCH ×2 (09:46→21:15)
[2018-08-21] MEDS: ENOXAPARIN SODIUM 40 MG/0.4 ML SYG SUBCU SCH (09:47)
[2018-08-21] MEDS: diphenhydrAMINE HCL 25 MG CAP PO SCH ×2 (09:47→21:15)
[2018-08-21] MEDS ORDERED: SODIUM CHL 0.9% 50ML MIN-BAG+ 50 ML IVPB ONE (19:34)
[2018-08-21] MEDS ORDERED: cefTRIAXone SODIUM 1 GM VIAL ONE (19:35)
[2018-08-21] MEDS: cefTRIAXone SODIUM 1 GM in SODIUM CHL 0.9% 50ML MIN-BAG+ 50 ML IVPB SCH (19:56)
[2018-08-21] MEDS ORDERED: PRAVASTATIN SODIUM 20 MG TAB PO SCH (21:00)
--- NOTE | 2018-08-21 22:26 | PN ---
DATE: 08/21/18 SUPERVISING PHYSICIAN: Matthew Easton M.D. SUBJECTIVE: The patient feels better this morning. He still has quite a bit of coughing and some shortness of breath. He notes that his body aches are much less than when he was admitted and he has been afebrile. OBJECTIVE: VITAL SIGNS: Temperature 97.5, pulse 96, blood pressure 136/76, respirations 18, satting 92% on nasal cannula at 2 liters at rest. I's and O's are fairly well balanced with a weight of 86.0 kg. CHEST: Lung sounds are still diminished towards the bases with no obvious wheezing. There is just a very faint rhonchi heard bilaterally on the bases as well. HEART: Regular rate and rhythm without appreciable murmurs, gallops, or rubs. ABDOMEN: Remains soft, non-tender. Positive bowel sounds. EXTREMITIES: Without any clubbing, cyanosis or edema. NEUROLOGIC: He is alert and oriented times three. LABORATORY: White count 6, 800, hemoglobin 14, hematocrit 41.9, platelet count 216,000. Differential shows a left shift continued. Chemistries show normal electrolytes today with carbon dioxide 28, BUN 27, creatinine 0.89, calcium 9.3. MICROBIOLOGY: No additional specimens to report. RADIOLOGY: Chest x-ray 2 view chest shows no evidence of acute cardiopulmonary disease. ASSESSMENT: 1. Acute exacerbation of chronic obstructive pulmonary disease secondary to influenza A with concerns for developing community acquired pneumonia with a component initially of hypoxia requiring ongoing supplemental oxygen. 2. Influenza A upper respiratory infection contributing to #1. 3. Mild dehydration secondary to influenza and ongoing fever, improving with fluids. 4. History of hypertension showing to be stable. 5. History of bipolar disorder with aggressive anger episodes on valproic acid. 6. History of chronic back pain. 7. Seasonal allergies. 8. Chronic gastroesophageal reflux disease. 9. B12 deficiency. 10. Hyperlipidemia. PLAN: Will continue with current plan of care, aggressive pulmonary hygiene and antibiotic coverage with azithromycin and Rocephin as well as Tamiflu for antiviral coverage. He continue on IV fluids and is on Lovenox per protocol. We tapered his Solu-Medrol and start him on some p.o. prednisone in the morning. Will anticipate hopefully being able to discharge tomorrow. Until he can transition to outpatient management will continue to monitor and treat as needed. #[id number] [facility]
[2018-08-22] MEDS: KCL 20MEQ/0.45% NS 1,000 ML IVS PRN (02:11)
[2018-08-22 05:48] VITALS: BP 136/84; TEMP 99.1
[2018-08-22] MEDS: PANTOPRAZOLE SODIUM IV 40 MG VIAL IV SCH (06:21)
[2018-08-22] MEDS: IPRATROPIUM/ALBUTEROL 3 ML VIAL NEB SCH ×2 (08:15→13:32)
[2018-08-22] MEDS ORDERED: predniSONE 20 MG TAB PO SCH (09:00)
[2018-08-22] MEDS: MELOXICAM 7.5 MG TAB PO SCH (09:12)
[2018-08-22] MEDS: GABAPENTIN 300 MG CAP PO SCH (09:12)
[2018-08-22] MEDS: CETIRIZINE HCL 10 MG TAB PO SCH (09:12)
[2018-08-22] MEDS: DIVALPROEX SODIUM 250 MG TAB PO SCH (09:12)
[2018-08-22] MEDS: OSELTAMIVIR 75 MG CAP PO SCH (09:12)
[2018-08-22] MEDS: diphenhydrAMINE HCL 25 MG CAP PO SCH (09:12)
[2018-08-22] MEDS: ENOXAPARIN SODIUM 40 MG/0.4 ML SYG SUBCU SCH (09:13)
[2018-08-22] MEDS: ACETAMINOPHEN 500 MG TAB PO SCH (09:13)
[2018-08-22] MEDS ORDERED: BUDESONIDE/FORMOTEROL 160/4.5 60 PUFF/6 GM INH INH SCH (11:00)
[2018-08-22 18:37] VITALS: O2SAT 98
--- NOTE | 2018-09-01 13:30 | DS ---
SUPERVISING PHYSICIAN: Christiano Bowen MD ADMISSION DIAGNOSIS 1. Acute exacerbation of chronic obstructive pulmonary disease secondary to influenza A with concerns for developing community acquired pneumonia with a component of hypoxia requiring supplemental oxygen. 2. Influenza A upper respiratory infection. 3. Mild dehydration secondary to influenza and ongoing fever. 4. History of hypertension. 5. History of bipolar disorder with aggressive anger episodes, currently on valproic acid. 6. History of chronic back pain. 7. Seasonal allergies. 8. Gastroesophageal reflux disease. 9. B12 deficiency. 10. Hyperlipidemia. DISCHARGE DIAGNOSIS: 1. Acute exacerbation of chronic obstructive pulmonary disease secondary to influenza A with concerns for developing community acquired pneumonia with a component initially of hypoxia requiring ongoing supplemental oxygen. The patient does show improvement and stabilization. 2. Influenza A upper respiratory infection contributing to #1. 3. Mild dehydration secondary to influenza and ongoing fever, improved with fluids. 4. History of hypertension showing to be stable. 5. History of bipolar disorder with aggressive anger episodes on valproic acid. 6. History of chronic back pain. 7. Seasonal allergies. 8. Chronic gastroesophageal reflux disease. 9. B12 deficiency. 10. Hyperlipidemia. REASON FOR HOSPITALIZATION: Mr. Rushing is a 63 year-old male patient who presented to the Emergency Room today with generalized pain that occurred over the last 24 hours. He noted he had been a little febrile but denied any chills. He had had some nasal congestion and sore throat and started with a chronic cough from smoking within the last month which has become much more productive in the recent days. Vital signs showed on admission that he was febrile with a temperature of 100.4, heart rate 97, blood pressure 160/91, saturation 91% on room air at rest. Laboratory studies showed he had a normal white count of 9,500 with a left shift. Influenza testing by PCR was positive for influenza A. He does have a lengthy history of smoking tobacco for well over 50 years, sometimes up to 5 packs of day he says. He also has a history of drinking alcohol on a daily to weekly basis either vodka or whiskey. He admits to using marijuana on a regular basis, usually daily. Given his history and risk factors and influenza testing being positive, febrile, Dr. Dong started the patient on Solu-Medrol and albuterol and requested the patient be admitted for chronic obstructive pulmonary disease exacerbation secondary to influenza with concerns for developing community acquired pneumonia. The patient was admitted in stable condition. LABORATORY: White count on admission was 9,500, at discharge it was 6,800. Hemoglobin and hematocrit were stable at 14 and 41.9, respectively, at discharge with differential showing left shift improving prior to discharge. Chemistries showed normal electrolytes initially with BUN 25, creatinine 0.94. At discharge, they were essentially unchanged. Liver functions were within normal limits. Urinalysis was within normal limits. Valproic acid was less than 10. MICROBIOLOGY: Sputum culture showed abundant mixed normal respiratory rosita, final results. Influenza A by PCR was for influenza A. RADIOLOGY: Chest x-ray in the Emergency Room prior to admission showed no evidence of acute pulmonary disease. Followup x-ray on 08/21/18, the day before discharge, per radiologic interpretation showed no evidence of acute cardiopulmonary disease as well. HOSPITAL COURSE: Mr. Rushing was admitted with exacerbation of chronic obstructive pulmonary disease with concerns for community acquired pneumonia with positive influenza A. He was started on azithromycin and Rocephin as well as Tamiflu. He was also given Solu-Medrol and advanced to p.o. prednisone before discharge. He showed good improvement in his clinical status and was able to transition to outpatient management. PLAN: Mr. Rushing was discharged on 08/22/18 with instructions to followup with Hiram Espinoza NP, on 08/23/18 at 1300. He was to resume his home medications as instructed. He was again encouraged to stop smoking. He was told to return to the hospital should he have any concerning symptoms. New medications at discharge included: 1. Azithromycin 250 mg daily for 4 days. 2. Tamiflu 75 mg b.i.d. for a total of 5 days, #10 tablets, no refills. Diet at discharge was regular diet as tolerated. Activity to increase as tolerated. CONDITION ON DISCHARGE: Stable and improving. DISPOSITION: The patient was discharged home. [facility][id number] [facility]
== END 2018-08-22 15:55 | disposition home or self-care (01) | DRG 190 ==
LOC: ER 14:05 → MS 17:13
PROVIDERS: ADMIT Nurse Practitioner Family; ATTEND Nurse Practitioner Family
DX: J44.1 Chronic obstructive pulmonary disease with (acute) exacerbation (principal); J10.00 Influenza due to other identified influenza virus with unspecified type of pneumonia; E86.0 Dehydration; I10 Essential (primary) hypertension; F31.9 Bipolar disorder, unspecified; G89.29 Other chronic pain; M54.9 Dorsalgia, unspecified; K21.9 Gastro-esophageal reflux disease without esophagitis; E78.5 Hyperlipidemia, unspecified; E53.8 Deficiency of other specified B group vitamins; R09.02 Hypoxemia; F17.210 Nicotine dependence, cigarettes, uncomplicated; Z79.1 Long term (current) use of non-steroidal anti-inflammatories (NSAID); Z79.899 Other long term (current) drug therapy; Z88.8 Allergy status to other drugs, medicaments and biological substances

== ENCOUNTER 2019-01-15 17:28 | Emergency (ER) | payer MEDICARE, OTHER ==
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
[2019-01-15] MEDS ORDERED: ORPHENADRINE CITRATE 30 MG/ML AMP IM ONE (18:36)
[2019-01-15] MEDS ORDERED: KETOROLAC TROMETHAMINE INJ 30 MG/ML VIAL IM ONE (18:36)
[2019-01-15] MEDS ORDERED: traMADol HCL 50 MG (ER DISP) # 6 TABS PO ONE (18:39)
[2019-01-15 19:15] VITALS: BP 151/77; TEMP 98.9; O2SAT 94
== END 2019-01-15 19:15 | disposition home or self-care (01) ==
LOC: ER 17:28
DX: M54.5 Low back pain (principal); G89.29 Other chronic pain; M62.830 Muscle spasm of back; F31.9 Bipolar disorder, unspecified; J44.9 Chronic obstructive pulmonary disease, unspecified; K21.9 Gastro-esophageal reflux disease without esophagitis; Z87.891 Personal history of nicotine dependence; Z79.899 Other long term (current) drug therapy
CPT/HCPCS: J1885; J2360

== ENCOUNTER → 2019-04-17 | Outpatient (CLI) | payer MEDICARE, OTHER | LOC: LAB.O 17:27 | PROVIDERS: ATTEND Nurse Practitioner Family | DX: R19.7 Diarrhea, unspecified (principal); R97.20 Elevated prostate specific antigen [PSA] ==

== ENCOUNTER → 2019-08-04 | Outpatient (CLI) | payer MEDICARE, OTHER | LOC: LAB.O 16:40 | PROVIDERS: ATTEND Registered Nurse General Practice | DX: R53.82 Chronic fatigue, unspecified (principal); E78.2 Mixed hyperlipidemia ==

== ENCOUNTER 2020-03-24 14:44 | Emergency (ER) | payer MEDICARE, MEDICAID ==
[2020-03-24 15:07] VITALS: TEMP 98.5
[2020-03-24] MEDS ORDERED: SODIUM CHLORIDE 0.9% 1000ML 1,000 ML IVS ONE (15:55)
[2020-03-24] MEDS ORDERED: SODIUM CHLORIDE 0.9% (FLUSH) 10 ML SYG IV PRN (15:55)
[2020-03-24] MEDS ORDERED: ALUM & MAG HYDROX-SIMETHICONE 30 ML, LIDOCAINE VISCOUS 2% 15 ML PO ONE ×2 (15:56)
--- NOTE | 2020-03-24 17:27 | CT ---
PROCEDURE: Abdomen/Pelvis w/Contrast CLINICAL HISTORY: 64 years Male LLQ pain with associated diarrhea. COMPARISON: None. TECHNIQUE: Contiguous axial images obtained through the abdomen and pelvis following IV and oral contrast. Reformatted images obtained. This exam was performed according to our department optimization program which includes automated exposure control, adjustment of the mA and/or kv according to patient size and/or use of iterative reconstruction technique. FINDINGS: Mild scarring/atelectasis in the lower lungs. Small hiatal hernia. Fatty replacement in the liver. The spleen and pancreas appear unremarkable. The adrenal glands are mildly prominent. The kidneys appear unremarkable. No hydronephrosis. The gallbladder is visualized. Atherosclerotic changes in the aorta. No aneurysmal dilatation of the aorta. There is fluid in the colon consistent with a diarrheal state. There are some areas of colonic wall thickening with mild surrounding inflammatory changes suggesting infectious or inflammatory colitis. No bowel obstruction. The appendix appears unremarkable. No significant free pelvic fluid. Degenerative changes in the spine. IMPRESSION: There are findings consistent with infectious or inflammatory colitis with fluid in the colon consistent with a diarrheal state. Other findings as above. Electronically signed by: Ricci Mcnulty MD 03/24/2020 5:25 PM CDT
--- NOTE | 2020-03-24 17:41 | ED.PDOC ---
History of Present Illness - General Chief Complaint: GI Problem Stated Complaint: back pain,abd pain, diarrhea Time Seen by Provider: 03/24/20 15:26 Source: patient, RN notes reviewed, Vital Signs reviewed Exam Limitations: no limitations - History of Present Illness Initial Comments: Patient is a [id number]-old white male who presents with complaints of abdominal pain, low back pain and diarrhea for last 4 days. It is not getting any better. Is actually worsening. The pain is cramping in nature. It is worse in his left lower quadrant. Nothing makes it better. Worse with the diarrhea. The pain is moderate in intensity. No radiation. Timing/Duration: 1 week Severity: moderate Improving Factors: nothing Worsening Factors: nothing Associated Symptoms: fever/chills, loss of appetite, malaise, nausea/vomiting - nausea only, weakness Allergies/Adverse Reactions: Allergies Thioridazine [From Mellaril] Allergy (Verified 12/14/18 20:32) Anaphylaxis Home Medications: Ambulatory Orders Valproic Acid 250 mg PO BID 02/16/16 Pantoprazole Tablet [Protonix] 40 mg PO DAILY@0630 11/15/16 Tramadol HCl 100 mg PO BID PRN 11/04/17 Budesonide-Formoterol Fumarate [Symbicort 160-4.5 Mcg/Act] 1 inh INH BID 12/14/18 Ciprofloxacin HCl [Ciprofloxacin Hydrochlori] 500 mg PO BID #20 tab 03/24/20 Cyanocobalamin [Vitamin B-12] 1,000 mcg SL DAILY 03/24/20 Meloxicam 15 mg PO DAILY 03/24/20 Naproxen Sodium [Naproxen] 220 mg PO BEDTIME 03/24/20 Olopatadine HCl [Pazeo] 1 - 2 drop OP PRN 03/24/20 Probiotic Product [Probiotic] 1 tab PO .TWICE WEEKLY 03/24/20 metroNIDAZOLE [Flagyl] 500 mg PO Q8H #21 tab 03/24/20 Review of Systems - Review of Systems Constitutional: States: see HPI, chills, fever, malaise, weakness EENTM: States: no symptoms reported. Denies: eye pain, blurred vision, double vision Respiratory: States: no symptoms reported. Denies: cough, short of breath, stridor Cardiology: States: no symptoms reported. Denies: chest pain, palpitations, syncope Gastrointestinal/Abdominal: States: see HPI, abdominal pain, diarrhea, nausea. Denies: vomiting Genitourinary: States: no symptoms reported. Denies: dysuria, frequency Musculoskeletal: States: see HPI, back pain. Denies: joint pain, joint swelling, neck pain Skin: States: no symptoms reported. Denies: change in color, rash Neurological: States: see HPI, weakness. Denies: headache, numbness, paresthesia, tingling, tremors Endocrine: States: no symptoms reported. Denies: excessive sweating, intolerance to cold, intolerance to heat Hematologic/Lymphatic: States: no symptoms reported. Denies: anemia, easy bleeding, easy bruising All other Systems: No Change from Baseline Past Medical History (General) - Patient Medical History Hx Seizures: No Hx Stroke: No Hx Dementia: No Hx Asthma: No Hx of COPD: Yes Hx Cardiac Disorders: No Hx Congestive Heart Failure: No Hx Pacemaker: No Hx Hypertension: No Hx Thyroid Disease: No Hx Diabetes: No Hx Gastroesophageal Reflux: Yes Hx Renal Disease: No Hx Cancer: No Hx of HIV: No Hx Hepatitis C: No Hx MRSA: No - Vaccination History Hx Tetanus, Diphtheria Vaccination: No Hx Influenza Vaccination: Yes Hx Pneumococcal Vaccination: Yes - Social History Hx Tobacco Use: Yes Hx Chewing Tobacco Use: Yes Hx Alcohol Use: Yes Hx Substance Use: No Hx Substance Use Treatment: No Hx Depression: Yes - bipolar Hx Physical Abuse: No Hx Emotional Abuse: No - Female History Patient : No Family Medical History - Family History Father Family History: No Known Living Status: Hx Family Cancer: Yes - esophagus-brother Hx Family;Other: ALS-mom Physical Exam - Physical Exam General Appearance: Alert, Anxious, Well Developed, Well Nourished Eye Exam: bilateral normal Ears, Nose, Throat: hearing grossly normal, normal ENT inspection, normal pharynx - except for dry MM Neck: non-tender, full range of motion, supple Respiratory: chest non-tender, lungs clear, normal breath sounds, no respiratory distress, no accessory muscle use Cardiovascular/Chest: normal peripheral pulses, no edema, no gallop, no JVD, no murmur, tachycardia Peripheral Pulses: radial,right: 2+, radial,left: 2+ Gastrointestinal/Abdominal: soft, abnormal bowel sounds - hyperactive BS. , tenderness - LLQ. No peritoneal signs. Back Exam: normal inspection, no CVA tenderness, no vertebral tenderness Extremity: normal range of motion, non-tender, normal inspection Neurologic: oven heater II-XII nml as tested, no motor/sensory deficits, alert, normal mood/affect, oriented x 3 Skin Exam: normal color, warm/dry Lymphatic: no adenopathy Progress - Progress Progress: Differential diagnosis: Diverticulitis, bowel obstruction, pyelonephritis, colitis among others. 03/24/20 21:26 Patient with no elevated white count but does have a left shift with left lower quadrant pain. CT scan shows colitis and inflammatory changes. He is heme positive. C. difficile is negative. Stool cultures, Cryptosporidium and other testing is pending. The remainder of his labs are relatively unremarkable. Plan on discharge home on Cipro and Flagyl. Patient has been warned not to drink with the Flagyl. Patient to follow-up with PCP on Wednesday. I discussed this plan of care with the patient he voices understanding and agreement. Patient understands that he does not meet criteria for admission, though he wishes we would place him in the hospital for care. Ricci Eckert M.D. #[id number] - Results/Orders Results/Orders: 03/24/20 15:55 Sodium Chloride 0.9% (Flush) [Saline Flush Syringe] 10 ml IV PRN PRN 03/24/20 15:56 Hold Metformin x 48Hrs [id number] 03/24/20 16:00 EKG STAT 03/24/20 17:22 STOOL CULTURE Stat 03/24/20 17:25 CRYPTOSPORIDIA AG,STOOL Stat HELIOBACTER PYLORI AG,STOOL Routine Laboratory Results - last 24 hr 03/24/20 03/24/20 03/24/20 15:59 16:14 16:14 WBC 8.4 RBC 4.60 L Hgb 15.0 Hct 42.5 MCV 92.4 MCH 32.5 H MCHC 35.2 RDW 13.1 Plt Count 184 MPV 7.5 Absolute Neuts (auto) 7.40 H Absolute Lymphs (auto) 0.40 L Absolute Monos (auto) 0.60 Absolute Eos (auto) 0.00 Absolute Basos (auto) 0.00 Neutrophils % 87.7 H Lymphocytes % 4.6 L Monocytes % 7.5 Eosinophils % 0.0 L Basophils % 0.2 Sodium 134 L Potassium 3.5 L Chloride 97 L Carbon Dioxide 25 Anion Gap 15.5 BUN 14 Creatinine 0.99 BUN/Creatinine Ratio 14.1 Random Glucose 107 H Serum Osmolality 269.2 L Calcium 8.8 Total Bilirubin Direct Bilirubin Indirect Bilirubin AST ALT Alkaline Phosphatase Serum Total Protein Albumin Lipase Urine Color Yellow Urine Appearance Clear Urine pH 5.5 Ur Specific [place] 1.025 Urine Protein 30 Urine Glucose (UA) Negative Urine Ketones 15 H Urine Blood Trace-lysed H Urine Nitrite Negative Urine Bilirubin Small H Urine Urobilinogen 0.2 Ur Leukocyte Esterase Negative Urine RBC 0-1 Urine WBC 0 Ur Epithelial Cells 0 Urine Bacteria 0 Stool Occult Blood 03/24/20 03/24/20 16:14 17:25 WBC RBC Hgb Hct MCV MCH MCHC RDW Plt Count MPV Absolute Neuts (auto) Absolute Lymphs (auto) Absolute Monos (auto) Absolute Eos (auto) Absolute Basos (auto) Neutrophils % Lymphocytes % Monocytes % Eosinophils % Basophils % Sodium Potassium Chloride Carbon Dioxide Anion Gap BUN Creatinine BUN/Creatinine Ratio Random Glucose Serum Osmolality Calcium Total Bilirubin 0.9 Direct Bilirubin 0.1 Indirect Bilirubin 0.8 AST 18 ALT 15 Alkaline Phosphatase 57 Serum Total Protein 6.5 Albumin 3.6 Lipase 25 Urine Color Urine Appearance Urine pH Ur Specific [place] Urine Protein Urine Glucose (UA) Urine Ketones Urine Blood Urine Nitrite Urine Bilirubin Urine Urobilinogen Ur Leukocyte Esterase Urine RBC Urine WBC Ur Epithelial Cells Urine Bacteria Stool Occult Blood Positive H PROCEDURE: Abdomen/Pelvis w/Contrast CLINICAL HISTORY: 64 years Male LLQ pain with associated diarrhea. COMPARISON: None. TECHNIQUE: Contiguous axial images obtained through the abdomen and pelvis following IV and oral contrast. Reformatted images obtained. This exam was performed according to our department optimization program which includes automated exposure control, adjustment of the mA and/or kv according to patient size and/or use of iterative reconstruction technique. FINDINGS: Mild scarring/atelectasis in the lower lungs. Small hiatal hernia. Fatty replacement in the liver. The spleen and pancreas appear unremarkable. The adrenal glands are mildly prominent. The kidneys appear unremarkable. No hydronephrosis. The gallbladder is visualized. Atherosclerotic changes in the aorta. No aneurysmal dilatation of the aorta. There is fluid in the colon consistent with a diarrheal state. There are some areas of colonic wall thickening with mild surrounding inflammatory changes suggesting infectious or inflammatory colitis. No bowel obstruction. The appendix appears unremarkable. No significant free pelvic fluid. Degenerative changes in the spine. IMPRESSION: There are findings consistent with infectious or inflammatory colitis with fluid in the colon consistent with a diarrheal state. Other findings as above. Electronically signed by: Ricci Mcnulty MD 03/24/2020 5:25 PM CDT EKG performed on 24 March 2020 at 1602 hrs.: Sinus tachycardia with frequent PVCs at 110 bpm, incomplete right bundle branch block, old anterior infarct, abnormal EKG. No comparison EKG available at this time. Departure - Departure Clinical Impression: Colitis, Rectal bleeding, Left-shifted white blood cells, Abdominal pain Time of Disposition: 21:30 Disposition: Discharge to Home or Self Care Condition: Fair Departure Forms: ED Discharge - Pt. Copy, Patient Portal Self Enrollment Instructions: Inflammatory Bowel Disease (DC), Bloody Stools, Adult (DC) Activity: increase activity as tolerated Referrals: MICHEL BROUSSARD IV, [employer]INE OPERATOR [Primary Care Provider] - 1-5 Days Prescriptions: Ciprofloxacin HCl [Ciprofloxacin Hydrochlori] 500 mg PO BID #20 tab metroNIDAZOLE [Flagyl] 500 mg PO Q8H #21 tab Home Medications: Ambulatory Orders Valproic Acid 250 mg PO BID 02/16/16 Pantoprazole Tablet [Protonix] 40 mg PO DAILY@0630 11/15/16 Tramadol HCl 100 mg PO BID PRN 11/04/17 Budesonide-Formoterol Fumarate [Symbicort 160-4.5 Mcg/Act] 1 inh INH BID 12/14/18 Ciprofloxacin HCl [Ciprofloxacin Hydrochlori] 500 mg PO BID #20 tab 03/24/20 Cyanocobalamin [Vitamin B-12] 1,000 mcg SL DAILY 03/24/20 Meloxicam 15 mg PO DAILY 03/24/20 Naproxen Sodium [Naproxen] 220 mg PO BEDTIME 03/24/20 Olopatadine HCl [Pazeo] 1 - 2 drop OP PRN 03/24/20 Probiotic Product [Probiotic] 1 tab PO .TWICE WEEKLY 03/24/20 metroNIDAZOLE [Flagyl] 500 mg PO Q8H #21 tab 03/24/20
[2020-03-24] MEDS ORDERED: CIPROFLOXACIN 500 MG TAB PO ONE (19:30)
[2020-03-24 21:26] VITALS: BP 136/87; O2SAT 95
== END 2020-03-24 21:36 | disposition home or self-care (01) ==
LOC: ER 14:44
DX: K52.9 Noninfective gastroenteritis and colitis, unspecified (principal); R10.32 Left lower quadrant pain; D72.89 Other specified disorders of white blood cells; R00.0 Tachycardia, unspecified; I45.10 Unspecified right bundle-branch block; I49.3 Ventricular premature depolarization; M54.5 Low back pain; K21.9 Gastro-esophageal reflux disease without esophagitis; F31.9 Bipolar disorder, unspecified; J44.9 Chronic obstructive pulmonary disease, unspecified; Z87.891 Personal history of nicotine dependence; Z79.899 Other long term (current) drug therapy; Z88.8 Allergy status to other drugs, medicaments and biological substances
CPT/HCPCS: 36415; 74177; 80048; 80076; 81001; 82270; 83690; 85025; 87015; 87045; 87046; 87272; 87324; 87338; 87449; 93005; J7030